=== PATIENT | female | born 1990 | race Caucasian/White ===

== ENCOUNTER 2020-11-15 13:47 | Emergency (ER) | payer SELFPAY ==
[2020-11-15 13:50] VITALS: BP 115/83; PULSE 110; RESP 20; TEMP 37.1; O2SAT 100; BMI 34.9
--- NOTE | 2020-11-15 14:27 | W.ED.ABDPA2 ---
HPI - Abdominal Pain General: Chief Complaint: Abdominal Pain Stated Complaint: abdominal pain Time Seen by Provider: 11/15/20 13:48 Source: patient Mode of arrival: ambulatory Limitations: no limitations History of Present Illness: HPI narrative: Patient is a 30-year-old female who presents to ED today with complaint of diffuse abdominal pain. Patient tells me she has had abdominal pain over the past 1.5 months. Patient tells me she had a cholecystectomy early September in [place]. She states she began having pain shortly after that-she thought it was just related to postop discomfort. Patient tells me she has had loose stools since the procedure. She is not having any vomiting. No fevers. PMH is significant for congestive heart failure related to cardiomyopathy. She takes Lasix 40mg for this but has been out of this medication for the past month. She complaints of SOB with exertion. No chest pains. Abdominal surgeries include one section and the cholecystectomy. MD elicited complaint: abdominal pain Onset (ago): week(s) Pain Consistency: constant Location: Diffuse Severity: severe Radiation: none Migration to: no migration Exacerbating factors: eating Relieving factors: other (pantoprazole will help slightly ) Associated Symptoms: Reports diarrhea and nausea; Denies chills, dysuria, fever(s), hematochezia, melena and vomiting Related Data: Patient : No Review of Systems Const: Denies: fever(s), chills, body aches, fatigue or malaise ENMT: Denies: throat pain or odynophagia Card: Denies: chest pain Resp: Reports: dyspnea (chronically with her CHF); Denies: productive cough, pain on inspiration, change in phlegm color, hemoptysis or chest congestion GI: Reports: abdominal pain, nausea and diarrhea; Denies: vomiting, hematochezia, melena or white/light colored stool : Denies: flank pain, difficulty voiding, dysuria, urinary frequency, urinary urgency, urinary hesitancy, vaginal odor, vaginal bleeding or vaginal discharge Musc: Denies: neck pain or back pain Skin/Breast: Denies: rash Neuro: Denies: headache(s), numbness in extremities, weakness in extremities or sensory changes Physical Exam Const: COMMON NORMALS: no acute distress, patient oriented x3, no limitations and alert GENERAL APPEARANCE: cooperative NUTRITIONAL APPEARANCE: obese ORIENTATION/CONSCIOUSNESS: Yes awake, Yes oriented to person, Yes oriented to place and Yes oriented to time HENMT: COMMON NORMALS: normocephalic and atraumatic HEAD & SCALP: normocephalic and atraumatic Resp: COMMON NORMALS: normal respiratory effort and clear to auscultation bilaterally AUSCULTATION: clear to auscultation bilaterally Cardio: COMMON NORMALS: regular rate and regular rhythm RATE: regular rate RHYTHM: regular rhythm GI: COMMON NORMALS: Normal to inspection, nondistended, normoactive bowel sounds present, Soft to palpation, No hepatosplenomegaly present and no masses AUSCULTATION: Yes normoactive bowel sounds PALPATION: Yes Soft to palpation, Yes Tenderness to palpation present (GI) (diffusely ), Yes Guarding due to palpation present (GI) and Yes No hepatosplenomegaly present : COMMON NORMALS: Yes no CVA tenderness BLADDER/KIDNEY EXAM: Yes no CVA tenderness Back/Pelvis: COMMON NORMALS: no CVA tenderness Extremity: COMMON NORMALS: no calf tenderness and no pedal edema Neuro: COMMON NORMALS: patient oriented x3 SENSORIUM/ORIENTATION: Yes alert, Yes oriented to person, Yes oriented to place and Yes oriented to time Skin: COMMON NORMALS: no rashes or lesions noted GENERAL SKIN EXAM: no rashes or lesions noted Course Vital Signs: Vital signs: Vital Signs Temperature 98.7 F 11/15/20 13:50 Pulse Rate 110 H 11/15/20 18:53 Respiratory Rate 20 H 11/15/20 18:53 Blood Pressure 129/98 11/15/20 18:53 Pulse Oximetry 100 11/15/20 18:53 MDM - Abdominal Pain MDM Narrative: Medical decision making narrative: Patient here with complaints of abdominal pain over the past 1.5 months. CBC and CMP are non-concerning. UA does not look infected. Her lactate is normal. Patient's BNP is slightly over 6000 with no comparisons. She admittedly has been out of her Lasix over the past month. CT scan showing findings consistent with her diagnoses of CHF. I spoke to Dr. Tobias regarding patient and her CT findings. She feels patient is stable to be discharged. We will give her 60mg IV lasix and place her back on her lasix at home. Information has been placed with and we will get her set up with a PCP and nuclear physics teacher as she recently moved here from [place]. Return to ED precautions given. Lab Data: Labs: Lab Results 11/15/20 11/15/20 11/15/20 Range/Units 14:24 14:24 14:24 WBC 6.3 (4.0-10.0) 10^3/ uL RBC 5.26 (4.1-5.3) 10^6/u L Hgb 13.0 (11.5-15.3) g/dL Hct 44.2 (37.0-47.0) % MCV 84.0 (81-99) fL MCH 24.7 L (28.0-34.0) pg MCHC 29.4 L (30.0-36.0) g/dL RDW 15.3 H (12.1-15.1) % Plt Count 388 (130-400) 10^3/c mm MPV 10.3 (7.4-10.4) fL Neut % (Auto) 51.2 % Lymph % (Auto) 36.2 % Liberty % (Auto) 9.0 % Eos % (Auto) 1.6 % Baso % (Auto) 1.7 % Neut # (Auto) 3.24 (1.8-7.7) 10^3/u L Lymph # (Auto) 2.3 (0.8-4.8) 10^3/u L Liberty # (Auto) 0.6 (0.2-0.9) 10^3/u L Eos # (Auto) 0.1 (0.0-0.8) 10^3/u L Baso # (Auto) 0.1 (0.0-0.1) 10^3/u L Nucleated RBC % (a uto) 0 % Nucleated RBCs # 0.0 /100WBC Sodium 138 (136-145) mmol/L Potassium 5.2 H (3.5-5.1) mmol/L Chloride 103 (98-107) mmol/L Carbon Dioxide 25 (22-29) mmol/L Anion Gap 15.2 (5-19) BUN 9 (6-20) mg/dL Creatinine 0.5 (0.5-0.9) mg/dL GFR Calculation 143.9 H (90-130) mL/min Glucose 86 (65-115) mg/dL Calculated Osmolal ity 284 L (285-295) mOsm/k g Lactic Acid (0.5-2.2) mmol/L Calcium 8.9 (8.5-10.5) mg/dL Total Bilirubin 1.1 (0.15-1.2) mg/dL AST 26 (0-32) U/L ALT 22 (0-33) U/L Alkaline Phosphata se 91 (35-105) IU/L NT-Pro-B Natriuret Pep (0-125) pg/mL Total Protein 6.8 (6.6-8.7) g/dL Albumin 3.7 (3.5-5.2) g/dL Globulin 3.1 (1.3-4.6) g/dL Lipase 20 (13-60) U/L HCG, Qual Negative (Negative) Urine Color (Yellow) Urine Appearance (CLEAR) Urine pH (5-7) Ur Specific Gravit y (1.005-1.030) Urine Protein (Negative) Urine Glucose (UA) (Normal) Urine Ketones (Negative) Urine Blood (Negative) Urine Nitrate (Negative) Urine Bilirubin (Negative) Urine Urobilinogen (Negative) mg/dL Ur Leukocyte Beatriz ase (Negative) Urine RBC (0-2) /hpf Urine WBC (0-5) /hpf Ur Squamous Epith Cells (0-5) /hpf Amorphous Sediment Urine Bacteria (NONE) /hpf Urine Mucus /hpf 11/15/20 11/15/20 11/15/20 Range/Units 14:24 14:24 14:48 WBC (4.0-10.0) 10^3/ uL RBC (4.1-5.3) 10^6/u L Hgb (11.5-15.3) g/dL Hct (37.0-47.0) % MCV (81-99) fL MCH (28.0-34.0) pg MCHC (30.0-36.0) g/dL RDW (12.1-15.1) % Plt Count (130-400) 10^3/c mm MPV (7.4-10.4) fL Neut % (Auto) % Lymph % (Auto) % Liberty % (Auto) % Eos % (Auto) % Baso % (Auto) % Neut # (Auto) (1.8-7.7) 10^3/u L Lymph # (Auto) (0.8-4.8) 10^3/u L Liberty # (Auto) (0.2-0.9) 10^3/u L Eos # (Auto) (0.0-0.8) 10^3/u L Baso # (Auto) (0.0-0.1) 10^3/u L Nucleated RBC % (a uto) % Nucleated RBCs # /100WBC Sodium (136-145) mmol/L Potassium (3.5-5.1) mmol/L Chloride (98-107) mmol/L Carbon Dioxide (22-29) mmol/L Anion Gap (5-19) BUN (6-20) mg/dL Creatinine (0.5-0.9) mg/dL GFR Calculation (90-130) mL/min Glucose (65-115) mg/dL Calculated Osmolal ity (285-295) mOsm/k g Lactic Acid 1.6 (0.5-2.2) mmol/L Calcium (8.5-10.5) mg/dL Total Bilirubin (0.15-1.2) mg/dL AST (0-32) U/L ALT (0-33) U/L Alkaline Phosphata se (35-105) IU/L NT-Pro-B Natriuret Pep 6107 H (0-125) pg/mL Total Protein (6.6-8.7) g/dL Albumin (3.5-5.2) g/dL Globulin (1.3-4.6) g/dL Lipase (13-60) U/L HCG, Qual (Negative) Urine Color Keeley (Yellow) Urine Appearance Clear (CLEAR) Urine pH 5 (5-7) Ur Specific Gravit y 1.025 (1.005-1.030) Urine Protein 1+ H (Negative) Urine Glucose (UA) Norm (Normal) Urine Ketones Negative (Negative) Urine Blood Neg (Negative) Urine Nitrate Negative (Negative) Urine Bilirubin 1+ H (Negative) Urine Urobilinogen 4 H (Negative) mg/dL Ur Leukocyte Beatriz ase Negative (Negative) Urine RBC None (0-2) /hpf Urine WBC 0-4 H (0-5) /hpf Ur Squamous Epith Cells 5-10 H (0-5) /hpf Amorphous Sediment Not Reportable Urine Bacteria Trace (NONE) /hpf Urine Mucus 2+ /hpf Imaging Data ^: CT Abd/Pel: Radiologist's impression: [email or web address] [place] [address] CT Scan Report Signed Patient: JUDAH YU Unit #: [id number] : 1990 Age/Sex: 30 / F ADM Date: 11/15/20 Loc: ER Room/Bed: Attending Dr: Ordering Provider/Ordering MD: Archana Arias Date of Service: 11/15/20 Procedure(s): CT abdomen pelvis w con* [id number] Accession Number(s): [id number] Report Number: [id number] PROCEDURE INFORMATION: Exam: CT Abdomen And Pelvis With Contrast Exam date and time: 11/15/2020 3:25 PM Age: 30 years old Clinical indication: Abdominal pain; Generalized; Prior surgery; Surgery date: 1-6 months; Patient HX: Gb surgery 2/2 - C/O abd pain and distention TECHNIQUE: Imaging protocol: Computed tomography of the abdomen and pelvis with contrast. Radiation optimization: All CT scans at this facility use at least one of these dose optimization techniques: automated exposure control; mA and/or kV adjustment per patient size (includes targeted exams where dose is matched to clinical indication); or iterative reconstruction. Contrast material: OMNI 300; Contrast volume: 95 ml; Contrast route: INTRAVENOUS (IV); COMPARISON: No relevant prior studies available. RADIATION DOSE METRICS: Total DLP (mGy-cm): 1977. FINDINGS: Tubes, catheters and devices: Pacemaker lead partially visualized. Pleural spaces: Small bilateral pleural effusions. Heart: Cardiomegaly. There is a small pericardial effusion. Liver: Normal. No mass. Gallbladder and bile ducts: The gallbladder has been removed. Pancreas: Normal. No ductal dilation. Spleen: Spleen is mildly enlarged measuring 13.8 cm. Small incidental splenule. Adrenal glands: Normal. No mass. Kidneys and ureters: Normal. No hydronephrosis. Stomach and bowel: Unremarkable. No obstruction. No mucosal thickening. Appendix: No evidence of appendicitis. Intraperitoneal space: There is a small to moderate amount of ascites in the abdomen/pelvis. Vasculature: Unremarkable. No abdominal aortic aneurysm. Lymph nodes: Multiple subcentimeter mesenteric and retroperitoneal lymph nodes. Urinary bladder: Unremarkable as visualized. Reproductive: Unremarkable as visualized. Bones/joints: Unremarkable. No acute fracture. Soft tissues: There is soft tissue anasarca. CT/CT abdomen pelvis w con* [id number] IMPRESSION: The combination of cardiomegaly, pleural effusions, ascites, and soft tissue anasarca is consistent with congestive heart failure. Radiation Dose CTDIVOL = (mGy): DLP = 1978.02 (mGy-cm) Dictated By: Jane Rogers MD Signed By: Jane Rogers MD Signed Date/Time: 11/15/20 155 DD/ 1549 Discharge Plan Discharge Patient Disposition: Home Clinical Impression: CHF (congestive heart failure) Qualifiers: Heart failure type: unspecified Heart failure chronicity: chronic Qualified Code(s): I50.9 - Heart failure, unspecified Condition: Stable Prescriptions: Continued furosemide 40 mg Tablet 40 mg PO DAILY@0800 Qty: 30 RF: 0 No Action cyclobenzaprine 10 mg Tablet 10 mg PO TID PRN (Reason: MUSCLE SPASMS) RF: 0 lamotrigine 200 mg tablet 200 mg PO DAILY@0800 RF: 0 metoprolol succinate 50 mg tablet extended release 24 hr 50 mg PO DAILY@0800 RF: 0 diclofenac sodium 100 mg tablet extended release 24 hr 100 mg PO DAILY@0800 RF: 0 buspirone 30 mg tablet 60 mg PO BEDTIME@2200 RF: 0 lisinopril 10 mg Tablet 10 mg PO DAILY@0800 RF: 0 bupropion HCl 150 mg tablet extended release 24 hr 150 mg PO DAILY@0800 RF: 0 Discharge Orders: Discharge ED (Routine); Ordered 11/15/20 Ordered By: Archana Arias Patient Instructions: Congestive Heart Failure, Ascites (ED) Activity Restrictions/Additional Instructions: You need to begin taking your Lasix daily. Please return to the emergency department for worsening abdominal pain, worsening shortness of breath, inability to lie flat, fevers, severe swelling, or any other concerns you may have. Case management should contact you shortly to set you up with a primary care provider as well as a nuclear physics teacher for routine management of your congestive heart failure. Coding Level of Care Code ED Marine Railway Operator for Natasha Fwd Exam Comprehensive
--- NOTE | 2020-11-15 14:42 | CTR_ITS ---
PROCEDURE INFORMATION: Exam: CT Abdomen And Pelvis With Contrast Exam date and time: 11/15/2020 3:25 PM Age: 30 years old Clinical indication: Abdominal pain; Generalized; Prior surgery; Surgery date: 1-6 months; Patient HX: Gb surgery 2/2 - C/O abd pain and distention TECHNIQUE: Imaging protocol: Computed tomography of the abdomen and pelvis with contrast. Radiation optimization: All CT scans at this facility use at least one of these dose optimization techniques: automated exposure control; mA and/or kV adjustment per patient size (includes targeted exams where dose is matched to clinical indication); or iterative reconstruction. Contrast material: OMNI 300; Contrast volume: 95 ml; Contrast route: INTRAVENOUS (IV); COMPARISON: No relevant prior studies available. RADIATION DOSE METRICS: Total DLP (mGy-cm): FINDINGS: Tubes, catheters and devices: Pacemaker lead partially visualized. Pleural spaces: Small bilateral pleural effusions. Heart: Cardiomegaly. There is a small pericardial effusion. Liver: Normal. No mass. Gallbladder and bile ducts: The gallbladder has been removed. Pancreas: Normal. No ductal dilation. Spleen: Spleen is mildly enlarged measuring 13.8 cm. Small incidental splenule. Adrenal glands: Normal. No mass. Kidneys and ureters: Normal. No hydronephrosis. Stomach and bowel: Unremarkable. No obstruction. No mucosal thickening. Appendix: No evidence of appendicitis. Intraperitoneal space: There is a small to moderate amount of ascites in the abdomen/pelvis. Vasculature: Unremarkable. No abdominal aortic aneurysm. Lymph nodes: Multiple subcentimeter mesenteric and retroperitoneal lymph nodes. Urinary bladder: Unremarkable as visualized. Reproductive: Unremarkable as visualized. Bones/joints: Unremarkable. No acute fracture. Soft tissues: There is soft tissue anasarca. CT/CT abdomen pelvis w con* [id number] IMPRESSION: The combination of cardiomegaly, pleural effusions, ascites, and soft tissue anasarca is consistent with congestive heart failure. Radiation Dose CTDIVOL = (mGy): DLP = 1977. (mGy-cm)
[2020-11-15 14:44] LABS: Basophils # 0.1 10^3/uL (0.0-0.1); Basophils % 1.7 %; Eosinophils # 0.1 10^3/uL (0.0-0.8); Eosinophils % 1.6 %; Hematocrit 44.2 % (37.0-47.0); Lymphocytes # 2.3 10^3/uL (0.8-4.8); Lymphocytes % 36.2 %; Mean Corpuscular HGB Conc 29.4 g/dL (30.0-36.0); Mean Corpuscular Hemoglobin 24.7 pg (28.0-34.0); Mean Platelet Volume 10.3 fL (7.4-10.4); Monocytes # 0.6 10^3/uL (0.2-0.9); Neutrophils # 3.24 10^3/uL (1.8-7.7); Neutrophils % 51.2 %; Nucleated Red Blood Cells % 0 %; Platelet Count 388 10^3/cmm (130-400); Red Blood Count 5.26 10^6/uL (4.1-5.3); Red Cell Distribution Width 15.3 % (12.1-15.1); White Blood Count 6.3 10^3/uL (4.0-10.0)
[2020-11-15] MEDS: lidocaine 2% viscous 15 ML, aluminum-mag hydrox-simethicon 30 ML, sucralfate oral liq 1 GM PO (14:49)
[2020-11-15 14:55] VITALS: BP 117/92; PULSE 110; RESP 20; O2SAT 100
[2020-11-15 15:14] LABS: HCG, Serum Qual Negative (Negative)
[2020-11-15 15:15] LABS: Alanine Aminotransferase 22 U/L (0-33); Albumin Level 3.7 g/dL (3.5-5.2); Alkaline Phosphatase 91 IU/L (35-105); Aspartate Amino Transferase 26 U/L (0-32); Blood Urea Nitrogen 9 mg/dL (6-20); Calcium 8.9 mg/dL (8.5-10.5); Carbon Dioxide 25 mmol/L (22-29); Chloride 103 mmol/L (98-107); Globulin 3.1 g/dL (1.3-4.6); Glomerular Filtration Rate 143.9 mL/min (90-130); Glucose 86 mg/dL (65-115); Lipase 20 U/L (13-60); Osmolality Calculated 284 mOsm/kg (285-295); Sodium 138 mmol/L (136-145); Total Bilirubin 1.1 mg/dL (0.15-1.2); Total Protein 6.8 g/dL (6.6-8.7)
[2020-11-15 15:21] LABS: Anion Gap 15.2 (5-19); Potassium 5.2 mmol/L (3.5-5.1)
[2020-11-15 15:27] LABS: Add Urine Microscopic? YES; Bilirubin Urine 1+ (Negative); Blood Urine Neg (Negative); Glucose Urine UA Norm (Normal); Ketones Urine Negative (Negative); Leukocyte Esterase Urine Negative (Negative); Nitrate Urine Negative (Negative); Protein Urine 1+ (Negative); Specific Gravity, Urine 1.025 (1.005-1.030); Urine Appearance Clear (CLEAR); Urine Color Amber (Yellow); Urobilinogen Urine 4 mg/dL (Negative); WBC Urine 0-4 /hpf (0-5); pH Urine 5 (5-7)
[2020-11-15 15:28] LABS: Add Urine Culture? No; Bacteria Urine TRACE /hpf; Mucus Urine 2+ /hpf
[2020-11-15] MEDS: iohexol 300 mg/mL 100 mL Btl IV (15:37)
[2020-11-15 16:22] VITALS: RESP 20
[2020-11-15] MEDS: morphine 4 mg/mL SDV 1 mL IVP (16:22)
[2020-11-15 16:28] VITALS: BP 117/92; PULSE 111; RESP 16; O2SAT 98
[2020-11-15 16:32] LABS: Lactic Sepsis W/Reflex 1.6 mmol/L (0.5-2.2)
[2020-11-15 17:19] LABS: NT Pro B Type Natriuretic Pept 6107 pg/mL (0-125)
[2020-11-15] MEDS: FUROsemide 10 mg/mL SDV 10mL 60 MG IVP (18:07)
[2020-11-15 18:51] VITALS: BP 129/98; PULSE 110; RESP 20; O2SAT 100
[2020-11-15 18:53] VITALS: BP 129/98; PULSE 110; RESP 20; O2SAT 100
--- NOTE | 2020-11-16 15:26 | DCPLANNER ---
clinical nursing manager had message to schedule a follow up appointment for patient with cardiology and to speak with patient about getting established with a primary care physician. clinical nursing manager called patient to discuss these referrals with patient. Patient stated that she wanted to wait until she got her mailing address and insurance switched to [place] before scheduling anything. clinical nursing manager gave patient, social work case manager phone number and information and explained that when patient wanted to have an appointment scheduled to call case management manager and this poem writer would be happy to get appointments scheduled.
== END 2020-11-15 18:56 | disposition home or self-care (01) ==
PROVIDERS: Emergency Provider Physician Assistant
DX: I50.9 Heart failure, unspecified (principal)
CPT/HCPCS: 74177; 80053; 81001; 83605; 83690; 83880; 84703; 85025; 96374; 96375; 99284; 99291; J1940; J2270; Q9967